=== PATIENT | male | born 2000 | race African-American/Black ===

== ENCOUNTER 2018-04-30 19:45 | Emergency (ER) | payer OTHER, SELFPAY ==
[2018-04-30] MEDS ORDERED: Ketorolac Tromethamine 30 MG/ML VIAL ONE (20:05)
--- NOTE | 2018-04-30 20:22 | RAD ---
FOUR VIEWS RIGHT KNEE: Comparison: None. History: Right knee pain after playing basketball and landing hard and hearing a pop. FINDINGS: Four views of the right knee shows no evidence of acute fracture or dislocation. There appears to be a small knee effusion. No focal soft tissue swelling is seen. No degenerative changes are present. IMPRESSION: Small knee effusion without acute osseous abnormality. POS: [facility]
== END 2018-04-30 21:27 | disposition home or self-care (01) ==
LOC: ERS 19:45
DX: M25.561 Pain in right knee (principal); X50.1XXA Overexertion from prolonged static or awkward postures, initial encounter; Y93.67 Activity, basketball
CPT/HCPCS: 96372; J1885

== ENCOUNTER → 2022-08-06 | Emergency (ER) | payer SELFPAY ==
[~2022-08-06] MED LIST: Ketamine 50 MG/ML (10ML VIAL) ONE; Rocuronium Bromide 10 MG/ML (10ML VIAL) ONE
== END ==
LOC: ERS 14:29
DX: Z53.21 Procedure and treatment not carried out due to patient leaving prior to being seen by health care provider (principal)